=== PATIENT | male | born 1950 | race Caucasian/White ===

== ENCOUNTER 2021-07-05 20:06 | Observation (INO) ==
[2021-07-06] MEDS ORDERED: Metoclopramide 10 MG/2 ML VIAL IVP ONE (00:44)
[2021-07-06 00:51] LABS: Basophils # 0.2 K/mcL (0.0-0.2); Basophils % 1.4 %; Eosinophils # 0.4 K/mcL (0.0-0.6); Eosinophils % 3.1 %; Hematocrit 45.2 % (37.5-50.1); Hemoglobin 15.1 g/dL (12.9-16.9); Immature Granulocytes % 0.3 % (0-4); Lymphocytes # 3.3 K/mcL (0.6-4.6); Lymphocytes % 28.8 %; Mean Corpuscular HGB Conc 33.4 g/dL (31.6-35.5); Mean Corpuscular Hemoglobin 30.5 pg (28.0-33.3); Mean Corpuscular Volume 91.3 fL (83.0-100.0); Mean Platelet Volume 9.8 fL (9.4-12.4); Monocytes # 1.1 K/mcL (0.0-1.3); Monocytes % 9.7 %; Neutrophils # 6.6 K/mcL (1.6-8.9); Platelet Count 273 K/mcL (140-400); Red Blood Count 4.95 M/mcL (4.19-5.50); Red Cell Distribution Width 12.9 % (11.5-14.5); Segmented Neutrophils % 56.7 %; White Blood Count 11.6 K/mcL (4.3-11.1)
[2021-07-06 01:09] LABS: BUN/Creatinine Ratio 13 (6-26); Blood Urea Nitrogen 12 mg/dL (8-23); Calcium 9.3 mg/dL (8.6-10.3); Carbon Dioxide 26 mEq/L (23-29); Chloride 104 mEq/L (98-107); Glucose 95 mg/dL (70-105); Lipase 17 Units/L (11-82); Osmolality,Calculated 286 (280-300); Potassium 3.5 mEq/L (3.5-5.1); Sodium 138 mEq/L (136-145); eGFR For African Americans > 60 (> 60); eGFR For Non-African Americans > 60 (> 60)
[2021-07-06 01:10] LABS: Troponin I < 0.03 ng/mL (< 0.04)
[2021-07-06 02:42] LABS: Influenza A PCR Negative (Negative); Influenza B PCR Negative (Negative); Resp. Syncytial Virus PCR Negative (Negative)
[2021-07-06] MEDS ORDERED: *HR* Promethazine 25 MG/ML VIAL IM PRN (02:44)
[2021-07-06] MEDS ORDERED: Naloxone 0.4 MG/ML INJ IVP PRN (02:44)
[2021-07-06] MEDS ORDERED: Melatonin 3 MG TABLET PO PRN (02:44)
[2021-07-06] MEDS ORDERED: Acetaminophen 325 MG TABLET PO PRN (02:44)
[2021-07-06 02:47] LABS: SARS-CoV-2 by PCR (In House) Negative (Negative)
[2021-07-06] MEDS ORDERED: Dextrose Gel 15 GM/37.5 ML TUBE PO PRN ×2 (02:50)
[2021-07-06] MEDS ORDERED: *HR* Dextrose 50 % in Water (Syg) 50 ML SYRINGE IVP PRN (02:50)
[2021-07-06] MEDS ORDERED: D5% in Water 1,000 ML IVC PRN (02:50)
[2021-07-06] MEDS ORDERED: Pantoprazole 40 MG VIAL IVP ONE (02:59)
[2021-07-06] MEDS ORDERED: Perflutren Lipid Microsphere 1.3 ML in 0.9 % Sodium Chloride 8.7 ML IVP PRN (03:15)
[2021-07-06 04:54] LABS: Hematocrit 43.1 % (37.5-50.1); Hemoglobin 14.3 g/dL (12.9-16.9); Mean Corpuscular HGB Conc 33.2 g/dL (31.6-35.5); Mean Corpuscular Volume 90.5 fL (83.0-100.0); Mean Platelet Volume 9.8 fL (9.4-12.4); Platelet Count 238 K/mcL (140-400); Red Blood Count 4.76 M/mcL (4.19-5.50); Red Cell Distribution Width 12.8 % (11.5-14.5); White Blood Count 10.2 K/mcL (4.3-11.1)
[2021-07-06 05:09] LABS: Alanine Aminotransferase 49 Units/L (7-52); Albumin/Globulin Ratio 1.6 (1.1-2.2); Alkaline Phosphatase 52 Units/L (34-104); Aspartate Amino Transferase 28 Units/L (13-39); BUN/Creatinine Ratio 14 (6-26); Bilirubin,Total 0.7 mg/dL (0.3-1.0); Blood Urea Nitrogen 13 mg/dL (8-23); Calcium 8.9 mg/dL (8.6-10.3); Carbon Dioxide 26 mEq/L (23-29); Chloride 105 mEq/L (98-107); Chol/HDL Ratio 3.3 (0-4.9); Cholesterol 129 mg/dL (< 200); Globulin 2.5 g/dL (2.4-3.5); Glucose 90 mg/dL (70-105); HDL Cholesterol 39 mg/dL (40-59); LDL Cholesterol,Calculated 69 mg/dL (< 100); Magnesium 2.1 mg/dL (1.6-2.6); Osmolality,Calculated 288 (280-300); Phosphorous 3.5 mg/dL (2.7-4.5); Potassium 3.4 mEq/L (3.5-5.1); Sodium 139 mEq/L (136-145); Total Protein 6.5 g/dL (6.4-8.9); Triglycerides 105 mg/dL (< 150); eGFR For African Americans > 60 (> 60); eGFR For Non-African Americans > 60 (> 60)
[2021-07-06 05:11] LABS: INR 1.1; Prothrombin Time 12.5 Seconds (9.4-12.1)
[2021-07-06 05:20] LABS: Troponin I < 0.03 ng/mL (< 0.04)
[2021-07-06] MEDS ORDERED: Regadenoson 0.4 MG/5 ML SYRINGE IVP ONE (06:02)
[2021-07-06] MEDS ORDERED: Ipratropium/Albuterol Neb 3 ML IH PRN (07:44)
[2021-07-06] MEDS: Budesonide/Formoterol 160/4.5 1 PUFF INH IH SCH ×2 (08:45→19:45)
[2021-07-06] MEDS: Gabapentin 300 MG CAPSULE PO SCH ×3 (09:48→21:25)
[2021-07-06] MEDS: Aspirin 81 MG TAB.CHEW PO SCH (09:48)
[2021-07-06] MEDS: Finasteride 5 MG TABLET PO SCH (09:49)
[2021-07-06 09:53] LABS: Thyroid Stimulating Hormone 10.765 mcIU/mL (0.340-5.600)
[2021-07-06 09:54] LABS: Estimated Average Glucose 151 mg/dl; Hemoglobin A1C 6.9 %
[2021-07-06] MEDS: Pantoprazole 40 MG VIAL IVP SCH (18:07)
[2021-07-06 18:18] LABS: Adenovirus F 40/41 PCR Not detected (Not detect); Astrovirus PCR Not detected (Not detect); C.difficile Toxin A/B Gene PCR Not detected (Not detect); Campylobacter by PCR Not detected (Not detect); Cryptosporidium by PCR Not detected (Not detect); Cyclospora cayetanensis PCR Not detected (Not detect); E. coli O157 by PCR Not detected (Not detect); Entamoeba histolytica PCR Not detected (Not detect); Enteroaggregative E.coli(EAEC) Not detected (Not detect); Enteropathogenic E.coli(EPEC) Not detected (Not detect); Enterotoxigenic E.coli (ETEC) Not detected (Not detect); Giardia lamblia PCR Not detected (Not detect); Norovirus GI/GII PCR Not detected (Not detect); Plesiomonas shigelloides PCR Not detected (Not detect); Rotavirus A PCR Not detected (Not detect); Salmonella PCR Not detected (Not detect); Sapovirus PCR Not detected (Not detect); Shig/EnteroinvasiveE coli EIEC Not detected (Not detect); Shigalike tox-prod E coli STEC Not detected (Not detect); Vibrio PCR Not detected (Not detect); Vibrio cholerae PCR Not detected (Not detect); Yersinia enterocolitica PCR Not detected (Not detect)
[2021-07-07] MEDS: Pantoprazole 40 MG VIAL IVP SCH (06:03)
[2021-07-07 07:07] VITALS: BP 128/68; PULSE 76; TEMP 97.7; O2SAT 96
[2021-07-07] MEDS: Aspirin 81 MG TAB.CHEW PO SCH (07:32)
[2021-07-07] MEDS: Finasteride 5 MG TABLET PO SCH (07:32)
[2021-07-07] MEDS: Gabapentin 300 MG CAPSULE PO SCH (07:32)
[2021-07-07] MEDS: Budesonide/Formoterol 160/4.5 1 PUFF INH IH SCH (10:49)
== END 2021-07-07 14:48 | disposition home or self-care (01) ==
LOC: EMEROOARM 20:06 → 4WAOSI 20:06 → SUATTDRO 07-06 02:26 → 4WAOSI 07-06 03:48
PROVIDERS: ADMIT Internal Medicine; ATTEND Family Medicine